=== PATIENT | female | born 1985 | race Caucasian/White ===

== ENCOUNTER 2017-05-30 14:33 | Emergency (ER) | payer OTHER ==
[2017-05-30 14:38] VITALS: BP 109/60; PULSE 77; TEMP 98.1; BMI 26.4
--- NOTE | 2017-05-30 15:21 | PDOC ---
History of Present Illness - General Chief Complaint: Pain, Acute Stated Complaint: FEVER/DIARRHEA Time Seen by Provider: 05/30/17 15:21 - History of Present Illness Initial Comments: 32 year old female on OCPs presenting with vaginal bleeding and diarrhea over the course of the day. Her LMP was three days ago and she is a [id number]. She takes an estrogen containing OCP. She claims she has been feeling hot and cold but denies sweats or measured fevers. She had three episodes of non bloody diarrhea this morning with nausea but denies vomiting and is able to keep down PO intake. Her vaginal bleeding is described as spotting. She had 4/10 crampy abdominal pain briefly during her diarrhea. She had a suspected yeast infection one week prior for which she took Monistat cream. Denies sick contacts, travel, insect exposure, or strange food ingestion. She has and appointment with her pig caster tomorrow but wasn't feeling well so she came in early. 05/30/17 16:21 05/30/17 19:06 Past History - Past Medical History Allergies/Adverse Reactions: Allergies Allergy/AdvReac Type Severity Reaction Status Date / Time No Known Allergies Allergy Verified 05/30/17 14:35 Home Medications: Ambulatory Orders Ondansetron [Zofran Odt -] 4 mg SL TID PRN #21 od.tablet 05/30/17 Asthma: Yes - Psycho/Social/Smoking Cessation Hx Suicidal Ideation: No Smoking History: Never smoked Hx Alcohol Use: No Drug/Substance Use Hx: No Hx Substance Use Treatment: No Review of Systems - Review of Systems Constitutional: Yes: Chills, Fever. No: Diaphoresis HEENTM: No: Blurred Vision, Recent change in vision Respiratory: No: Cough, Shortness of Breath ABD/GI: Yes: Diarrhea, Nausea. No: Constipated, Vomiting : Yes: Discharge. No: Burning Musculoskeletal: No: Back Pain Integumentary: No: Bruising Neurological: No: Headache, Numbness *Physical Exam - Vital Signs Last Vital Signs Temp Pulse Resp BP Pulse Ox 98.1 F 77 19 109/60 98 05/30/17 14:35 05/30/17 14:35 05/30/17 14:35 05/30/17 14:35 05/30/17 14:35 - Physical Exam General Appearance: Yes: Nourished, Appropriately Dressed. No: Apparent Distress HEENT: positive: EOMI, STEFANIE, Normal ENT Inspection, Normal Voice Neck: positive: Trachea midline, Normal Thyroid, Supple. negative: Tender, Rigid Respiratory/Chest: positive: Lungs Clear, Normal Breath Sounds. negative: Chest Tender, Respiratory Distress Cardiovascular: positive: Regular Rhythm, Regular Rate, S1, S2. negative: Edema , Murmur Female Pelvic Exam: positive: other (Performed by attending) Gastrointestinal/Abdominal: positive: Normal Bowel Sounds, Flat, Soft. negative : Tender Musculoskeletal: positive: Normal Inspection, CVA Tenderness Integumentary: positive: Normal Color, Dry, Warm Neurologic: positive: Fully Oriented, Alert, Normal Mood/Affect, Motor Strength 01/25 ED Treatment Course - LABORATORY CBC & Chemistry Diagram: 05/30/17 16:21 05/30/17 16:21 Medical Decision Making - Medical Decision Making 32 year old female with diarrhea nd vaginal spotting for the past two days, one week after a suspected vaginal yeast infection. 05/30/17 18:46 Labs returned WNL. Patient's nausea much better after 4 mg ODT Zofran. Per Dr. Whitney, vaginal exam generally WNL with some slight yeast like discharge. Will defer treatment to ObyGyn with whom he has an appointment tomorrow. Will send home with follow up tomorrow with her ObyGyn and a prescription for Zofran. 05/30/17 18:48 05/30/17 18:51 *DC/Admit/Observation/Transfer Diagnosis at time of Disposition: Gastroenteritis - Discharge Dispostion Admit: No - Prescriptions Prescriptions: Ondansetron [Zofran Odt -] 4 mg SL TID PRN #21 od.tablet PRN Reason: Nausea And/Or Vomiting - Referrals Referrals: Daylin Campos [Primary Care Provider] - - Patient Instructions Printed Discharge Instructions: DI for Viral Gastroenteritis -- Adult Additional Instructions: You were seen for nausea, diarrhea, and some abdominal pain. We believe this is most likely a viral syndrome or some symptoms from your vaginal infection. Please see your pig caster tomorrow. Please return to the ED if you have worsening fevers, chills, nausea, or diarrhea despite the medication. - Post Discharge Activity Work/School Note: Back to Work - Attestations Physician Attestion: 05/30/17 19:06
--- NOTE | 2017-05-30 15:41 | PDOC ---
Attending Attestation - Resident Resident Name: Lio Dinh - ED Attending Attestation I have performed the following: I have examined & evaluated the patient, The case was reviewed & discussed with the resident, I agree w/resident's findings & plan, Exceptions are as noted - HPI HPI: 05/30/17 15:36 ABD PAIN, N/V/D/ and Vaginal Bleeding - Physicial Exam PE: 05/30/17 15:38 ABDOMEN SOFT AND BENIGN - Medical Decision Making 05/30/17 15:[address] Dinh's Assessment and Plan
[2017-05-30 16:52] LABS: BASOPHIL 0.4 % (0-2.0); EOSINOPHIL 0.6 % (0-4.5); MCH 29.7 pg (25.7-33.7); MCHC 34.4 g/dl (32.0-36.0); MEAN CELL VOLUME 86.3 fl (80-96); MEAN PLT VOLUME 8.7 fl (7.5-11.1); NEUTROPHILS 76.6 % (42.8-82.8); PLATELET COUNT 297 K/MM3 (134-434); RDW 14.1 % (11.6-15.6)
[2017-05-30 16:56] LABS: URINE APPEARANCE CLEAR; URINE BILIRUBIN NEGATIVE (NEGATIVE); URINE BLOOD NEGATIVE (NEGATIVE); URINE COLOR LTYELLOW; URINE GLUCOSE (UA) NEGATIVE (NEGATIVE); URINE KETONE NEGATIVE (NEGATIVE); URINE LEUK ESTERASE NEGATIVE (NEGATIVE); URINE NITRITE NEGATIVE (NEGATIVE); URINE PROTEIN NEGATIVE (NEGATIVE); URINE UROBILINOGEN NEGATIVE mg/dL (0.2-1.0)
--- NOTE | 2017-05-30 17:01 | PDOC ---
*Physical Exam - Vital Signs Last Vital Signs Temp Pulse Resp BP Pulse Ox 98.1 F 77 19 109/60 98 05/30/17 14:35 05/30/17 14:35 05/30/17 14:35 05/30/17 14:35 05/30/17 14:35 - Physical Exam Comments: 05/30/17 17:19 GENERAL: Well developed, well nourished. Awake and alert. No acute distress. HEENT: Normocephalic, atraumatic. PERRLA, EOMI. No conjunctival pallor. Sclera are non- icteric. Moist mucous membranes. Oropharynx is clear. NECK: Supple. Full ROM. No JVD. Carotid pulses 2+ and symmetric, without bruits. No thyromegaly. No lymphadenopathy. CARDIOVASCULAR: Regular rate and rhythm. No murmurs, rubs, or gallops. Distal pulses are 2+ and symmetric. PULMONARY: No evidence of respiratory distress. Lungs clear to auscultation bilaterally. No wheezing, rales or rhonchi. ABDOMINAL: Soft. Non-tender. Non-distended. No rebound or guarding. No organomegaly. Normoactive bowel sounds. MUSCULOSKELETAL Normal range of motion at all joints. No bony deformities or tenderness. No CVA tenderness. EXTREMITIES: No cyanosis. No clubbing. No edema. No calf tenderness. SKIN: Warm and dry. Normal capillary refill. No rashes. No jaundice. NEUROLOGICAL: Alert, awake, appropriate. Cranial nerves 2-12 intact. No deficits to light touch and temperature in face, upper extremities and lower extremities. No motor deficits in the in face, upper extremities and lower extremities. Normoreflexic in the upper and lower extremities. Normal speech. Toes are downgoing bilaterally. Gait is normal without ataxia. PSYCHIATRIC: Cooperative. Good eye contact. Appropriate mood and affect. PELVIC: External genitalia normal without lesions. Vaginal vault has scant amount of white cheesy discharge. Cervix is long and closed. No cervical motion tenderness. Uterus is nontender and normal in size. Adnexa are nontender and without masses <Annika Virk - Last Filed: 05/30/17 18:36> - Vital Signs Last Vital Signs Temp Pulse Resp BP Pulse Ox 98.1 F 77 19 109/60 98 05/30/17 14:35 05/30/17 14:35 05/30/17 14:35 05/30/17 14:35 05/30/17 14:35 <Aliza Whitney - Last Filed: 05/30/17 19:14> ED Treatment Course - LABORATORY CBC & Chemistry Diagram: 05/30/17 16:21 05/30/17 16:21 - ADDITIONAL ORDERS Additional order review: Laboratory Results 05/30/17 16:21 Urine Color Ltyellow Urine Appearance Clear Urine pH 6.0 Urine Protein Negative Urine Glucose (UA) Negative Urine Ketones Negative Urine Blood Negative Urine Nitrite Negative Urine Bilirubin Negative Urine Urobilinogen Negative Ur Leukocyte Esterase Negative Urine HCG, Qual Negative 05/30/17 16:21 RBC 4.49 D MCV 86.3 MCHC 34.4 RDW 14.1 D MPV 8.7 Neutrophils % 76.6 Lymphocytes % 16.6 D Monocytes % 5.8 D Eosinophils % 0.6 Basophils % 0.4 <Annika Virk - Last Filed: 05/30/17 18:36> - LABORATORY CBC & Chemistry Diagram: 05/30/17 16:21 05/30/17 16:21 - ADDITIONAL ORDERS Additional order review: 05/30/17 16:21 RBC 4.49 D MCV 86.3 MCHC 34.4 RDW 14.1 D MPV 8.7 Neutrophils % 76.6 Lymphocytes % 16.6 D Monocytes % 5.8 D Eosinophils % 0.6 Basophils % 0.4 <Aliza Whitney - Last Filed: 05/30/17 19:14> Progress Note - Progress Note Progress Note: Upon evaluation, patient complains of nausea. Patient denies any episodes of diarrhea or vomiting in the ED. <Annika Virk - Last Filed: 05/30/17 18:36> Medical Decision Making - Medical Decision Making 05/30/17 19:13 pt tolerated po. feeling better. no diarrhea in the ED. ambulatory with a steady gait. has an appt with SHANK ARCHER for tomorrow. Used monostat yesterday. Discussed all reasons to return to the Ed and need for follow up. Stable for d/ c to home <Aliza Whitney - Last Filed: 05/30/17 19:14> *DC/Admit/Observation/Transfer - Attestations Scribe Attestion: 05/30/17 17:19 Documentation prepared by Annika Virk, acting as hospitalist medical director for Aliza Whitney DO <Annika Virk - Last Filed: 05/30/17 18:36> - Attestations Physician Attestion: 05/30/17 19:13 I, Dr. Aliza Whitney, DO, attest that this document has been prepared under my direction and personally reviewed by me in its entirety. I further attest, that it accurately reflects all work, treatment, procedures and medical decision -making performed by me. <Aliza Whitney - Last Filed: 05/30/17 19:14> Diagnosis at time of Disposition: Gastroenteritis - Prescriptions Prescriptions: Ondansetron [Zofran Odt -] 4 mg SL TID PRN #21 od.tablet PRN Reason: Nausea And/Or Vomiting - Referrals Referrals: Daylin Campos [Primary Care Provider] - - Patient Instructions Printed Discharge Instructions: DI for Viral Gastroenteritis -- Adult Additional Instructions: You were seen for nausea, diarrhea, and some abdominal pain. We believe this is most likely a viral syndrome or some symptoms from your vaginal infection. 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 Please return to the ED if you have worsening fevers, chills, nausea, or diarrhea despite the medication. - Post Discharge Activity Work/School Note: Back to Work
[2017-05-30] MEDS ORDERED: ONDANSETRON *ODT* 4 MG TABLET SL ONE (17:14)
[2017-05-30 17:34] LABS: ALBUMIN 3.6 g/dl (3.4-5.0); ANION GAP 6 (8-16); CALCIUM 9.3 mg/dL (8.5-10.1); CO2 28 mmol/L (21-32); GLUCOSE,RANDOM 91 mg/dL (74-106); MAGNESIUM 2.2 mg/dL (1.8-2.4)
[2017-05-30] MEDS ORDERED: ONDANSETRON *ODT* 4 MG TABLET ONE (17:37)
[2017-05-30 17:41] LABS: ALK PHOS 64 U/L (45-117); BILIRUBIN,TOTAL 0.5 mg/dL (0.2-1.0); CREATININE 0.5 mg/dL (0.55-1.02); SGOT/AST 11 U/L (15-37); SGPT/ALT 17 U/L (12-78); TOT PROT 8.1 g/dl (6.4-8.2)
== END 2017-05-30 19:14 | disposition home or self-care (01) ==
LOC: JER 14:33
DX: K52.9 Noninfective gastroenteritis and colitis, unspecified (principal)
CPT/HCPCS: 36415; 80053; 81003; 83690; 83735; 84703; 85025; 99283-25